=== PATIENT | male | born 1945 ===

== ENCOUNTER 2025-03-15 06:18 | Inpatient (IN) | payer MEDICARE ==
[~2025-03-15] VITALS: Ht 182.8 cm; Wt 94.0 kg
[2025-03-15] MEDS ORDERED: amLODIPine besylate 10 MG TAB PO SCH (08:30)
[2025-03-15] MEDS ORDERED: AMLODIPINE BESY10 MG PO (08:32)
[2025-03-15] MEDS ORDERED: ATORVASTATIN CA20 M1 PO (08:33)
[2025-03-15] MEDS ORDERED: LISINOPRIL5 MG PO (08:35)
[2025-03-15] MEDS ORDERED: HYDROCHLOROTHIA25 M1 PO (08:35)
[2025-03-15] MEDS ORDERED: Water, Sterile 10 ML VIAL IM PRN (08:40)
[2025-03-15] MEDS ORDERED: LORazepam 1 MG TAB PO PRN (08:40)
[2025-03-15] MEDS ORDERED: Ziprasidone Mesylate 20 MG VIAL IM PRN (08:40)
[2025-03-15] MEDS ORDERED: hydrOXYzine hydrochloride 50 MG/ML VIAL IM PRN (08:40)
[2025-03-15] MEDS ORDERED: ACETAMINOPHEN 325 MG TAB PO PRN (09:20)
[2025-03-15] MEDS ORDERED: Magnesium Hydroxide 30 ML UDC PO PRN (09:20)
[2025-03-15] MEDS ORDERED: MG-AL HYDROXIDE/SIMETICONE 30 ML UDC PO PRN (09:20)
[2025-03-15] MEDS ORDERED: Menthol/Zinc Oxide 4 GM THIN T PRN (09:35)
[2025-03-15 09:52] VITALS: BP 170/83
[2025-03-15] MEDS ORDERED: PAXIL20 M1 PO (14:13)
[2025-03-15 20:00] VITALS: BP 184/103
[2025-03-15] MEDS ORDERED: ATORVASTATIN CALCIUM 20 MG TAB PO SCH (21:00)
[2025-03-16 06:42] LABS: BASO # 0.1 10*3/uL (0.0-0.1); BASO % 0.7 % (0.0-1.0); EOS # 0.5 10*3/uL (0.0-0.4); EOS % 7.2 % (1.0-4.0); HEMATOCRIT 44.4 % (42.0-52.0); MEAN CELL VOLUME 90.2 fl (80.0-94.0); MEAN CORPUSCULAR HGB 30.5 pg (27.0-31.0); MEAN CORPUSCULAR HGB CONC 33.8 g/dl (33.0-37.0); MEAN PLATELET VOLUME 9.7 fl (9.6-12.3); MONO # 0.6 10*3/uL (0.1-1.0); MONO % 9.3 % (3.0-9.0); NEUT # 3.8 10*3/uL (2.3-7.9); NEUT % 55.8 % (47.0-73.0); PLATELET COUNT AUTOMATED 204 10*3/uL (130-400); RED BLOOD COUNT 4.92 10*6/uL (4.50-5.90); RED CELL DISTRI WIDTH 11.9 % (0-14.5); WHITE BLOOD COUNT 6.8 10*3/uL (4.8-10.8)
[2025-03-16 07:22] LABS: ALKALINE PHOSPHATASE 65 U/L (46-116); BUN 15 mg/dl (9-23); CHLORIDE 106 mmol/L (98-107); CHOLESTEROL 156 mg/dL (<200); LDL CHOLESTEROL 86 mg/dL (9-159); POTASSIUM 3.5 mmol/L (3.4-5.1); SGPT/ALT 11 U/L (5-49); TOTAL PROTEIN 6.4 gm/dL (6.0-8.0); TRIGLYCERIDES 161 mg/dl (<150)
[2025-03-16 07:24] LABS: VALPROIC ACID (DEPAKENE) < 3.0 ug/ml (50-100)
[2025-03-16 08:03] LABS: VITAMIN D, 25-HYDROXY 41.4 ng/mL (30-100)
[2025-03-16 08:14] VITALS: BP 154/93
[2025-03-16] MEDS ORDERED: hydroCHLOROthiazide 25 MG TAB PO SCH (09:00)
[2025-03-16] MEDS ORDERED: LISINOPRIL 5 MG TAB PO SCH (09:00)
[2025-03-16] MEDS ORDERED: Rivastigmine Tartrate 4.6 MG/24 HR PATCH T SCH (09:00)
[2025-03-16 09:56] LABS: BILIRUBIN Negative (Negative); BLOOD Negative (Negative); CLARITY Clear (Clear); COLOR Yellow (Yellow); GLUCOSE Negative (Negative); KETONE Negative (Negative); LEUKO ESTERASE Negative (Negative); NITRITE Negative (Negative); PH 5.5 (4.5-8.0); UROBILINOGEN 0.2 E.U./dl (0.0-1.0)
[2025-03-16 10:03] LABS: BACTERIA TRACE; EPITHELIAL CELLS 0-2; MUCOUS 1+; RBC 0-2 rbc/hpf (0-2); WBC 0-2 wbc/hpf (0-5)
[2025-03-16 20:00] VITALS: BP 131/90
[2025-03-16] MEDS ORDERED: Memantine Hydrochloride 5 MG TAB PO SCH (21:00)
[2025-03-17 08:00] VITALS: BP 138/88
[2025-03-17] MEDS ORDERED: NAMENDA-5 PO (09:44)
[2025-03-17] MEDS ORDERED: RIVASTIGMINE1 EACH T (09:44)
[2025-03-17 20:00] VITALS: BP 128/89
[2025-03-18 08:00] VITALS: BP 141/83
[2025-03-18 20:00] VITALS: BP 109/88
[2025-03-18] MEDS ORDERED: Mirtazapine 15 MG TAB PO SCH (21:00)
[2025-03-18] MEDS ORDERED: Memantine Hydrochloride 5 MG TAB PO SCH (21:00)
[2025-03-19 07:39] VITALS: BP 115/49
[2025-03-19 08:51] VITALS: BP 118/62
[2025-03-19] MEDS ORDERED: Rivastigmine Tartrate 9.5 MG/24 HR PATCH T SCH (09:00)
[2025-03-19 20:00] VITALS: BP 104/63
[2025-03-19] MEDS ORDERED: Memantine Hydrochloride 10 MG TAB PO SCH (21:00)
[2025-03-20 07:30] VITALS: BP 84/44
[2025-03-20 08:38] VITALS: BP 88/46
[2025-03-20] MEDS ORDERED: Memantine Hydrochloride 5 MG TAB PO SCH (09:00)
[2025-03-20] MEDS ORDERED: SODIUM CHLORIDE 0.9% 1,000 ML IV ONE (09:35)
[2025-03-20 20:00] VITALS: BP 121/81
[2025-03-21 07:52] VITALS: BP 138/78
[2025-03-21 08:56] LABS: BASO # 0.1 10*3/uL (0.0-0.1); BASO % 0.7 % (0.0-1.0); EOS # 0.5 10*3/uL (0.0-0.4); EOS % 6.1 % (1.0-4.0); HEMATOCRIT 48.9 % (42.0-52.0); MEAN CELL VOLUME 91.1 fl (80.0-94.0); MEAN CORPUSCULAR HGB 30.7 pg (27.0-31.0); MEAN CORPUSCULAR HGB CONC 33.7 g/dl (33.0-37.0); MEAN PLATELET VOLUME 10.3 fl (9.6-12.3); MONO # 0.7 10*3/uL (0.1-1.0); MONO % 8.4 % (3.0-9.0); NEUT # 4.6 10*3/uL (2.3-7.9); NEUT % 57.8 % (47.0-73.0); PLATELET COUNT AUTOMATED 247 10*3/uL (130-400); RED BLOOD COUNT 5.37 10*6/uL (4.50-5.90); RED CELL DISTRI WIDTH 12.3 % (0-14.5)
[2025-03-21 09:19] LABS: POTASSIUM 3.4 mmol/L (3.4-5.1); TOTAL PROTEIN 6.8 gm/dL (6.0-8.0)
[2025-03-21 20:00] VITALS: BP 112/73
[2025-03-21] MEDS ORDERED: Memantine Hydrochloride 10 MG TAB PO SCH (21:00)
[2025-03-22 08:00] VITALS: BP 119/60
[2025-03-22] MEDS ORDERED: RIVASTIGMINE1 EAC1 T (08:13)
[2025-03-22] MEDS ORDERED: MEMANTINE HCL10 MG PO (08:13)
[2025-03-22] MEDS ORDERED: MIRTAZAPINE15 M2 PO (08:13)
== END 2025-03-22 14:45 | disposition home or self-care (01) | DRG 885 ==
LOC: 3N 06:18
PROVIDERS: Counselor Professional; ADMIT Psychiatry & Neurology Psychiatry; ATTEND Psychiatry & Neurology Psychiatry
PROC: GZHZZZZ Group Psychotherapy (ICD-10-PCS; principal; 2025-03-16)
PROC: GZ56ZZZ Individual Psychotherapy, Supportive (ICD-10-PCS; 2025-03-16)
DX: F23 Brief psychotic disorder (principal); N18.31 Chronic kidney disease, stage 3a; F02.83 Dementia in other diseases classified elsewhere, unspecified severity, with mood disturbance; F33.1 Major depressive disorder, recurrent, moderate; E78.5 Hyperlipidemia, unspecified; I12.9 Hypertensive chronic kidney disease with stage 1 through stage 4 chronic kidney disease, or unspecified chronic kidney disease; G30.9 Alzheimer's disease, unspecified; R73.9 Hyperglycemia, unspecified; Z79.899 Other long term (current) drug therapy